=== PATIENT | female | born 1945 | race Caucasian/White ===

== ENCOUNTER 2024-05-20 03:49 | Inpatient (IN) | payer MEDICARE ==
[2024-05-20] MEDS ORDERED: Ondansetron PF 4 MG/2 ML Vial ONE (04:49)
[2024-05-20] MEDS ORDERED: Morphine 4 MG/ML VIAL ONE (04:49)
[2024-05-20 05:17] LABS: #Basophils 0.04 10x3/uL (0.0-0.2); %Basophils 0.3 % (0.0-1.0); %Eosinophils 1.1 % (0.0-10.0); %Lymphocytes 15.9 % (21.0-51.0); %Monocytes 7.5 % (0.0-10.0); %Neutrophils 74.6 % (42.0-75.0); Hematocrit 38.6 % (36.0-47.0); Hemoglobin 12.3 g/dL (12.0-16.0); Mean Corpuscular HGB CONC 31.9 g/dL (32.0-36.0); Mean Corpuscular Hemoglobin 28.7 pg (27.0-31.0); Mean Platelet Volume 9.9 fL (7.4-10.4); Platelet Count 198 10x3/uL (130-400); RBC Distribution Width 13.5 % (11.5-14.5); Red Blood Cell (RBC) Count 4.29 mill/uL (4.20-5.40)
[2024-05-20 05:34] LABS: ALT (SGPT) 20 U/L (8-55); AST (SGOT) 25 U/L (5-34); Albumin 3.4 g/dL (3.4-4.8); Alkaline Phosphatase 77 U/L (40-110); Anion Gap 14 mmol/L (10-20); BUN (Urea Nitrogen) 17 mg/dL (9.8-20.1); Calc. Creatinine Clearance 0 mL/min (70-130); Calcium 8.8 mg/dL (7.8-10.44); Carbon Dioxide 24 mmol/L (23-31); Chloride 107 mmol/L (98-107); Estimated GFR 53; Globulin 3.7 g/dL (2.4-3.5); Glucose 125 mg/dL (83-110); Lipase 34 U/L (8-78); Potassium 4.6 mmol/L (3.5-5.1); Protein, Total 7.1 g/dL (5.8-8.1); Sodium 140 mmol/L (136-145)
[2024-05-20 05:38] LABS: Troponin I Less than 0.010 ng/mL (< 0.028)
[2024-05-20] MEDS ORDERED: Amlodipine 5 MG TAB ONE (05:44)
[2024-05-20] MEDS ORDERED: Sodium Chloride 0.9% 100 ML ONE (07:35)
[2024-05-20] MEDS ORDERED: diphenhydrAMINE 50 MG/ML VIAL ONE ×2 (07:35→07:40)
[2024-05-20] MEDS ORDERED: Piperacillin/Tazobactam 4.5 GM VIAL ONE (07:35)
[2024-05-20] MEDS ORDERED: Metoclopramide HCl 10 MG (2 mL) VIAL ONE (07:35)
[2024-05-20 11:56] VITALS: BMI 45.3
[2024-05-20] MEDS ORDERED: Acetaminophen 325 MG TAB PO PRN (12:57)
[2024-05-20] MEDS: Sodium Chloride 0.9% 1,000 ML IV SCH (14:47)
[2024-05-20] MEDS: Morphine 4 MG/ML VIAL SLOW IVP PRN (14:48)
[2024-05-20] MEDS ORDERED: HYDROmorphone 0.5 MG/0.5 ML SYRINGE SLOW IVP PRN (21:02)
[2024-05-20] MEDS ORDERED: traMADol HCl 50 MG TAB PO PRN (21:38)
[2024-05-20] MEDS ORDERED: HYDROcodone/Acetaminophen 7.5/325 mg Tablet PO PRN (21:38)
[2024-05-21 07:00] LABS: #Basophils 0.04 10x3/uL (0.0-0.2); %Basophils 0.4 % (0.0-1.0); %Eosinophils 0.7 % (0.0-10.0); %Lymphocytes 15.5 % (21.0-51.0); %Monocytes 9.5 % (0.0-10.0); %Neutrophils 73.4 % (42.0-75.0); Hematocrit 37.6 % (36.0-47.0); Hemoglobin 11.9 g/dL (12.0-16.0); Mean Corpuscular HGB CONC 31.6 g/dL (32.0-36.0); Mean Corpuscular Hemoglobin 29.1 pg (27.0-31.0); Mean Corpuscular Volume 91.9 fL (78.0-98.0); Mean Platelet Volume 9.9 fL (7.4-10.4); Platelet Count 201 10x3/uL (130-400); RBC Distribution Width 13.8 % (11.5-14.5); Red Blood Cell (RBC) Count 4.09 mill/uL (4.20-5.40)
[2024-05-21 07:33] LABS: Anion Gap 13 mmol/L (10-20); BUN (Urea Nitrogen) 14 mg/dL (9.8-20.1); Calc. Creatinine Clearance 90 mL/min (70-130); Calcium 8.7 mg/dL (7.8-10.44); Carbon Dioxide 24 mmol/L (23-31); Chloride 106 mmol/L (98-107); Estimated GFR 66; Glucose 114 mg/dL (83-110); Potassium 4.3 mmol/L (3.5-5.1); Sodium 139 mmol/L (136-145)
[2024-05-21] MEDS ORDERED: Metoprolol Tartrate 50 MG TAB PO SCH (09:00)
[2024-05-21] MEDS ORDERED: Bacteriostatic Normal Saline 30 ML VIAL ONE (10:33)
[2024-05-21] MEDS ORDERED: Sterile Water 10 ML ONE (10:33)
[2024-05-21] MEDS ORDERED: Sincalide 5 MCG VIAL ONE (10:33)
[2024-05-21] MEDS: Amlodipine 5 MG TAB PO SCH (15:04)
[2024-05-21] MEDS: Furosemide 40 MG TAB PO SCH (15:04)
[2024-05-21] MEDS: Rosuvastatin 20 MG TAB PO SCH (15:05)
[2024-05-21] MEDS: Pantoprazole DR 40 MG TAB PO SCH (15:05)
[2024-05-21] MEDS: Lisinopril 20 MG TAB PO SCH ×2 (15:05→23:13)
[2024-05-22 07:29] VITALS: BP 138/81; TEMP 98.4
[2024-05-22] MEDS: Metoprolol Tartrate 25 MG TAB PO SCH (08:37)
== END 2024-05-22 13:40 | disposition home or self-care (01) | DRG 446 ==
LOC: ERS 03:49 → SJJU 08:40 → OBSVTOIN 12:57
PROVIDERS: ADMIT Student in an Organized Health Care Education/Training Program; ATTEND Student in an Organized Health Care Education/Training Program
PROC: 4A0D7BZ Measurement of Urinary Pressure, Via Natural or Artificial Opening (ICD-10-PCS; principal; 2024-05-20)
DX: K82.8 Other specified diseases of gallbladder (principal); I12.9 Hypertensive chronic kidney disease with stage 1 through stage 4 chronic kidney disease, or unspecified chronic kidney disease; N18.30 Chronic kidney disease, stage 3 unspecified; G62.9 Polyneuropathy, unspecified; I89.0 Lymphedema, not elsewhere classified; E78.00 Pure hypercholesterolemia, unspecified; E11.22 Type 2 diabetes mellitus with diabetic chronic kidney disease; Z88.5 Allergy status to narcotic agent; Z79.899 Other long term (current) drug therapy
CPT/HCPCS: 36415; 51798; 71045; 76705; 78226; 80048; 80053; 83690; 83735; 83880; 84484; 85025; 93005; 96374; 96375; A9537; G0378; J1200; J2270; J2405; J2543; J2765; J2805; J3490; J7050